=== PATIENT | male | born 2000 | race African-American/Black ===

== ENCOUNTER 2024-04-16 15:59 | Emergency (ER) | payer SELFPAY ==
[2024-04-16] MEDS ORDERED: Ketorolac Tromethamine 30 MG (1 mL) VIAL ONE (16:47)
[2024-04-16] MEDS ORDERED: HYDROcodone/Acetaminophen 10/325 mg Tablet ONE (16:47)
[2024-04-16] MEDS ORDERED: Morphine 4 MG/ML VIAL ONE (18:40)
== END 2024-04-16 18:45 | disposition home or self-care (01) ==
LOC: CSHERS 15:59
DX: K08.89 Other specified disorders of teeth and supporting structures (principal)
CPT/HCPCS: 96372; 99282; J1885; J2270